=== PATIENT | female | born 1990 | race Caucasian/White ===

== ENCOUNTER 2020-09-19 18:15 | Emergency (ER) | payer SELFPAY ==
[2020-09-19] MEDS ORDERED: Ibuprofen 200 MG TAB ONE (19:22)
--- NOTE | 2020-09-19 19:53 | RAD ---
LEFT KNEE FOUR VIEWS: Date: 09-19-2020 FINDINGS: No fracture or joint effusion was seen. The joint itself is normal in appearance. IMPRESSION: No acute findings. POS: HOME
== END 2020-09-19 20:25 | disposition home or self-care (01) ==
LOC: BURERS 18:15
DX: S80.02XA Contusion of left knee, initial encounter (principal); V89.2XXA Person injured in unspecified motor-vehicle accident, traffic, initial encounter